=== PATIENT | female | born 1975 | race American Indian/Alaskan Native ===

== ENCOUNTER 2016-12-17 12:33 | Inpatient (IN) | payer SELFPAY ==
[2016-12-17] MEDS ORDERED: LACTATED RINGERS 500 ML IV ONE (12:56)
[2016-12-17] MEDS ORDERED: XYLOCAINE 2% INFILTRATI ONE (14:23)
[2016-12-17] MEDS ORDERED: STADOL IV PRN (14:23)
[2016-12-17] MEDS ORDERED: POLYCILLIN/NS 2 GM/100 ML 2 GM/100 ML BAG IV ONE (14:23)
[2016-12-17] MEDS ORDERED: SUBLIMAZE IV PRN (14:23)
[2016-12-17] MEDS ORDERED: MINERAL OIL PO PRN (14:23)
[2016-12-17] MEDS ORDERED: BRETHINE IVP PRN (14:23)
[2016-12-17] MEDS ORDERED: ePHEDrine SULFATE IV PRN (14:23)
[2016-12-17] MEDS ORDERED: BRETHINE SUB-Q PRN (14:23)
[2016-12-17 14:30] LABS: Bacteria,Urine 1+ /HPF (Negative); Bilirubin,Urine NEG (Negative); Blood,Urine NEG (Negative); Ketones,Urine TR mg/dL (Negative); Leukocyte Esterase,Urine NEG (Negative); Mucus,Urine FEW /HPF; Nitrite,Urine NEG (Negative); Protein,Urine <15 mg/dL mg/dL (Negative); Urobilinogen,Urine < 2.0 mg/dL (<2.0)
--- NOTE | 2016-12-17 14:47 | History and Physical Report ---
History of Present Illness Date of examination: 12/17/16 Date of admission: 12/17/2016 Chief complaint: My water broke History of present illness: Patient is a 41 year old who presents as recent immigrant to this country with no care. Patient denies any history or complications. Past History Past Medical History: asthma, diabetes (gestational) Past Surgical History: no surgical history Family/Genetic History: none Social history: - Obstetrical History Expected Date of Delivery: 01/05/17 Actual Gestation: 37 Week(s) 2 Day(s) : 7 Para: 4 Number of Living Children: 4 Medications and Allergies Allergies Allergy/AdvReac Type Severity Reaction Status Date / Time No Known Allergies Allergy Verified 12/17/16 12:56 Review of Systems All systems: negative Genitourinary: leakage of fluid - Vital Signs Vital signs: Vital Signs Pulse BP 112 H 163/100 12/17/16 12:50 12/17/16 12:50 Temp Pulse Resp BP Pulse Ox 98.8 F 102 H 20 174/99 97 12/17/16 12:58 12/17/16 14:08 12/17/16 12:58 12/17/16 14:08 12/17/16 13:15 - Physical Exam Cardiovascular: Regular rate, Normal S1, Normal S2 Lungs: Positive: Clear to auscultation, Normal air movement Abdomen: Positive: normal appearance, soft, normal bowel sounds Genitourinary (Female): Positive: normal external genitalia, normal perenium Vulva: both: normal Vagina: Positive: normal moisture Uterus: Positive: enlarged Extremities: Positive: normal Deep Tendon Reflex Grade: Normal +2 - Obstetrical FHR: auscultation normal Cervical Dilatation: 5 Cervical Effacement Percentage: 90 Uterine Contraction Pattern: Regular Uterine Contraction Intensity: Moderate Results All other labs normal. Assessment and Plan IUP at 37.3 weeks with no care and spontaneous rupture of membranes with dilation. Admit to L&D. Draw panel. Treat for unknown GBS. Anticipate .
[2016-12-17] MEDS ORDERED: PITOCin/NS 20 UNIT/1000ML DRIP 20 UNITS/1,000 ML BAG IV SCH (15:00)
[2016-12-17] MEDS ORDERED: PITOCin/NS 30 UNIT/500ML 30 UNITS/500 ML BAG IV SCH (15:00)
[2016-12-17] MEDS ORDERED: LACTATED RINGERS 1,000 ML IV SCH (15:00)
--- NOTE | 2016-12-17 16:51 | Procedure Note ---
OB Delivery Note - Delivery Date of Delivery: 12/17/16 Surgeon: ZORAN PALAFOX Estimated blood loss: 300cc - Vaginal Delivery presentation: vertex Delivery position: OA Intrapartum events: no care Delivery monitor: external FHT, external uterine Route of delivery: Delivery placenta: spontaneous Delivery cord: 3 umbilical vessels Episiotomy: none Delivery laceration: none Anesthesia: none Delivery comments: Viable male delivered over intact perineum with no nuchal cord. Weight 6 pictau10 ounces with Apgars 8,9. No lacerations. Placenta delivered spontaneously and intact with 3vc. No lacerations. Patient tolerated procedure well. - A at 1 minute: 8 at 5 minutes: 9 Infant Gender: Male (6 ounds 11 ounces)
[2016-12-17] MEDS ORDERED: POLYCILLIN/NS 1 GM/50 ML 1 GM/50 ML BAG IV SCH (18:25)
[2016-12-17] MEDS ORDERED: DERMOPLAST TP PRN (18:36)
[2016-12-17] MEDS ORDERED: NORCO 5/325 PO PRN (18:36)
[2016-12-17] MEDS ORDERED: MILK OF MAGNESIA PO PRN (18:36)
[2016-12-17] MEDS ORDERED: ZOFRAN IV PRN (18:36)
[2016-12-17] MEDS ORDERED: TYLENOL PO PRN (18:36)
[2016-12-17] MEDS ORDERED: BENADRYL PO PRN (18:36)
[2016-12-17] MEDS ORDERED: DULCOLAX PR PRN (18:36)
[2016-12-17] MEDS ORDERED: SODIUM CHLORIDE FLUSH SYRINGE 10 ML IV NR (18:36)
[2016-12-17] MEDS ORDERED: PHENERGAN PR PRN (18:36)
[2016-12-17] MEDS ORDERED: PHENERGAN PO PRN (18:36)
[2016-12-17] MEDS ORDERED: LANSINOH TP PRN (18:36)
[2016-12-17] MEDS ORDERED: TUCKS PAD TP PRN (18:36)
[2016-12-17 19:24] LABS: Urine Drugs of Abuse Note Disclamer
[2016-12-17 19:27] LABS: Hematocrit 33.8 % (30.3-42.9); Hemoglobin 10.9 gm/dl (10.1-14.3); Mean Corpuscular HGB Conc 32 % (30-34); Mean Corpuscular Hemoglobin 26 pg (28-32); Mean Corpuscular Volume 81 fl (79-97); Platelet Count 201 K/mm3 (140-440); Red Blood Count 4.15 M/mm3 (3.65-5.03); Red Cell Distribution Width 15.7 % (13.2-15.2)
[2016-12-17] MEDS: MOTRIN PO SCH (19:41)
[2016-12-17 20:29] LABS: Anisocytosis 1+; Basophils % (Manual) 0 % (0.0-1.8); Blastocytes % (Manual) 0 %; Eosinophils % (Manual) 0 % (0.0-4.3)
[2016-12-17 20:30] LABS: Crenated RBC 1+; Diff Status Complete; Platelet Estimate Consistent w Auto; Poikilocytosis 1+
[2016-12-17 20:58] LABS: HIV-1 Antigen p24 Non React (Non React); HIVR-1/2 Ab Non React (Non React)
[2016-12-17] MEDS ORDERED: NORMODYNE PO SCH (22:00)
[2016-12-18] MEDS: COLACE PO SCH ×3 (00:01→22:19)
[2016-12-18] MEDS: MOTRIN PO SCH ×4 (02:15→18:57)
[2016-12-18 06:08] LABS: Hematocrit 26.8 % (30.3-42.9); Hemoglobin 8.9 gm/dl (10.1-14.3)
[2016-12-18] MEDS: PRENATAL VITAMIN PO SCH (12:53)
--- NOTE | 2016-12-18 17:30 | Progress Note ---
Assessment and Plan PPD 1 s/p . Doing well. Patient voices no complaints although there is a significant language barrier. Plan for discharge on tomorrow if infant able to go. Subjective - Subjective Date of service: 12/18/16 Interval history: Patient is a 41 year old who presents as recent immigrant to this country with no care. Patient denies any history or complications. Patient reports: appetite normal, voiding normally, pain well controlled, ambulating normally [place]ar[place]: doing well Objective - Vital Signs Latest vital signs: Vital Signs Temp Pulse Pulse Resp BP BP 12/18/16 09:00 98.3 F 71 18 143/88 12/18/16 05:55 20 12/18/16 04:30 98.6 F 77 16 121/70 12/18/16 00:00 98.6 F 68 18 122/82 12/17/16 20:00 98.6 F 75 16 128/70 12/17/16 19:41 22 12/17/16 18:15 98.5 F 70 16 122/73 12/17/16 17:29 75 122/77 Intake and Output 12/18/16 12/18/16 12/18/16 06:59 14:59 22:59 Intake Total 1410 480 Output Total 600 Balance 810 480 Intake: IV 750 PITOCin/NS 20 UNIT/1000ML 750 DRIP 20 units In 1,000 ml @ 125 mls/hr IV DIRECT SAGAR Rx#:[id number] Oral 660 480 Output: Urine 600 Void 600 Other: Total, Intake Amount 300 240 Total, Output Amount 600 # Voids Void 1 - Exam Cardiovascular: Present: Regular rate, Normal S1, Normal S2 Lungs: Present: Clear to auscultation, Normal air movement Abdomen: Present: normal appearance, soft, normal bowel sounds Uterus: Present: normal, firm Extremities: Present: normal Incision: Present: normal - Labs Labs: Abnormal lab results 12/17/16 12/18/16 Range/Units Unknown 05:17 Hgb 8.9 L (10.1-14.3) gm/dl Hct 26.8 L D (30.3-42.9) % MCH 26 L (28-32) pg RDW 15.7 H (13.2-15.2) % Monocytes % (Manual) 9.0 H (0.0-7.3) %
--- NOTE | 2016-12-19 10:58 | Progress Note ---
Assessment and Plan - Patient Problems (1) Insufficient care Current Visit: Yes Status: Acute Qualifiers: Trimester: T Plan to address problem: Patient is doing well Discharge home (2) Active labor at term Current Visit: Yes Status: Acute Subjective - Subjective Date of service: 12/19/16 Interval history: The patient reports decreased lochia. Her pain is being well controlled. She is tolerating a regular diet. Patient reports: appetite normal, voiding normally, pain well controlled [place]: doing well Objective - Vital Signs Latest vital signs: Vital Signs Temp Pulse Resp BP 12/19/16 08:00 98.7 F 76 124/92 12/19/16 01:40 98.6 F 80 20 131/77 12/18/16 16:30 98.4 F 88 20 136/88 Intake and Output 12/18/16 12/19/16 12/19/16 22:59 06:59 14:59 Intake Total 480 480 Balance 480 480 Intake: Oral 480 Intake, Free Water 480 Other: Total, Intake Amount 240 # Voids Void 1 2 - Exam Uterus: Present: normal, firm
--- NOTE | 2016-12-19 10:59 | Discharge Summary ---
Providers - Providers Date of Admission: 12/17/16 14:27 Date of discharge: 12/19/16 Attending physician: ZORAN PALAFOX Primary care physician: [employer] Hospitalization Reason for admission: active labor, IUP at term Delivery: Discharge diagnosis: IUP at term delivered baby: male Hospital course: The patient presents in active labor with no history of care. The patient has successful vaginal delivery. course was uncomplicated. Condition at discharge: Good Disposition: DISCHARGED TO HOME OR SELFCARE - Discharge Diagnoses (1) Insufficient care Status: Acute Qualifiers: Trimester: T (2) Active labor at term Status: Acute Plan - Discharge Medications Prescriptions: HYDROcodone/APAP 5-325 [[place] 5/325] 1 each PO Q6HR PRN #30 tablet PRN Reason: Pain Ibuprofen [Motrin] 600 mg PO Q8H PRN #30 tablet PRN Reason: Pain - Provider Discharge Summary Activity: no sex for 6 weeks, no heavy lifting 4 weeks, no strenuous exercise Diet: routine Instructions: routine Additional instructions: [] Smoking cessation referral if applicable(refer to patient education folder for contact #) [] Refer to [facility] Booklet Call your doctor immediately for: * Fever > 100.5 * Heavy vaginal bleeding ( >1 pad per hour) * Severe persistent headache * Shortness of breath * Reddened, hot, painful area to leg or breast * Drainage or odor from incision. * Keep incision clean and dry at all times and follow doctor's instructions regarding bathing/showering Follow-up in 4 weeks for visit - Follow up plan
[2016-12-19] MEDS: MOTRIN PO SCH (12:50)
[2016-12-19] MEDS: COLACE PO SCH (12:50)
[2016-12-19] MEDS: PRENATAL VITAMIN PO SCH (12:50)
[2016-12-19 16:56] VITALS: BP 140/79
== END 2016-12-19 17:40 | disposition home or self-care (01) | DRG 775 ==
LOC: TRG 12:33 → LD 14:27 → OB 18:26
PROVIDERS: ADMIT Obstetrics & Gynecology; ATTEND Obstetrics & Gynecology
PROC: 10E0XZZ Delivery of Products of Conception, External Approach (ICD-10-PCS; principal; 2016-12-17)
DX: O80 Encounter for full-term uncomplicated delivery (principal); O09.43 Supervision of pregnancy with grand multiparity, third trimester; O09.33 Supervision of pregnancy with insufficient antenatal care, third trimester; Z3A.37 37 weeks gestation of pregnancy; Z37.0 Single live birth; Z86.32 Personal history of gestational diabetes
CPT/HCPCS: 36415; 80307; 81001; 85007; 85014; 85018; 85025; 86592; 86706; 86762; 86803; 86850; 86900; 86901; 87806; 88307; 99211; G0463; J0290; J0595; J2590; J7120